=== PATIENT | female | born 1985 | race Caucasian/White ===

== ENCOUNTER 2017-02-01 21:54 | Inpatient (IN) | payer OTHER ==
[~2017-02-01] VITALS: Ht 175.3 cm; Wt 139.2 kg
[2017-02-01 22:15] VITALS: BP 126/83
[2017-02-01] MEDS ORDERED: PRENATAL TABLE1 EAC3 PO (22:53)
[2017-02-01] MEDS ORDERED: TUMS500 MG PO (22:54)
[2017-02-01 23:03] VITALS: BP 126/83
[2017-02-01 23:32] LABS: EOSINOPHIL (%) 0.1 % (0-5); HEMATOCRIT 33.8 % (36.0-46.0); IMMATURE GRANULOCYTE COUNT 0.1 K/uL; INSTRUMENT ABS NEUTROPHIL CT 12.4 K/uL; LYMPHOCYTE COUNT 1.2 K/uL (1.0-2.8); MCH 25.1 PG (29.0-34.0); MCHC 31.1 G/DL (30.0-36.0); MCV 80.7 FL (83-99); MEAN PLAT.VOLUME 11.6 uM^3 (9.5-12.4); MONOCYTE (%) 4.8 % (3-12); MONOCYTE COUNT 0.7 K/uL (0-0.8); NEUTROPHIL (%) 85.9 % (45-76); NEUTROPHIL COUNT 12.4 K/uL (1.8-6.4); PLATELET COUNT 188 K/uL (156-360); RBC DIS.WIDTH-CV 15.6 % (11.8-14.6); RBC DIS.WIDTH-SD 44.9 % (39-53); RED BLOOD COUNT 4.19 M/uL (3.80-5.20); WHITE BLOOD COUNT 14.5 K/uL (4.1-10.2)
[2017-02-02] VITALS (24 sets, daily range): BP systolic 104–137; BP diastolic 56–89
[2017-02-02] MEDS ORDERED: IBUPROFEN800 MG PO (14:00)
[2017-02-03 07:11] LABS: EOSINOPHIL (%) 0.2 % (0-5); HEMATOCRIT 27.1 % (36.0-46.0); IMMATURE GRANULOCYTE (%) 0.9 % (0.0-0.7); IMMATURE GRANULOCYTE COUNT 0.2 K/uL; INSTRUMENT ABS NEUTROPHIL CT 14.5 K/uL; LYMPHOCYTE COUNT 1.7 K/uL (1.0-2.8); MCH 25.5 PG (29.0-34.0); MCHC 31.4 G/DL (30.0-36.0); MCV 81.4 FL (83-99); MEAN PLAT.VOLUME 11.3 uM^3 (9.5-12.4); NEUTROPHIL COUNT 14.5 K/uL (1.8-6.4); PLATELET COUNT 166 K/uL (156-360); RBC DIS.WIDTH-CV 15.7 % (11.8-14.6); RBC DIS.WIDTH-SD 45.9 % (39-53); WHITE BLOOD COUNT 17.5 K/uL (4.1-10.2)
[2017-02-03 07:12] LABS: RED BLOOD COUNT 3.33 M/uL (3.80-5.20)
[2017-02-03 07:42] VITALS: BP 116/65
[2017-02-03] MEDS ORDERED: IRON325 MG PO (09:12)
[2017-02-03 15:19] VITALS: BP 126/77
[2017-02-03 22:51] VITALS: BP 134/60
[2017-02-04 07:53] VITALS: BP 134/63
== END 2017-02-04 12:30 | disposition home or self-care (01) | DRG 775 ==
LOC: LDRP-OP 21:54 → 2WEST 21:56
PROVIDERS: Midwife
PROC: 0KQM0ZZ Repair Perineum Muscle, Open Approach (ICD-10-PCS; principal; 2017-02-02)
PROC: 10E0XZZ Delivery of Products of Conception, External Approach (ICD-10-PCS; principal; 2017-02-02)
PROC: 10907ZC Drainage of Amniotic Fluid, Therapeutic from Products of Conception, Via Natural or Artificial Opening (ICD-10-PCS; principal; 2017-02-02)
PROC: 00HU33Z Insertion of Infusion Device into Spinal Canal, Percutaneous Approach (ICD-10-PCS; principal; 2017-02-02)
PROC: 3E0R3CZ (ICD-10-PCS; principal; 2017-02-02)
DX: O70.1 Second degree perineal laceration during delivery (principal); O99.214 Obesity complicating childbirth; E66.9 Obesity, unspecified; Z68.41 Body mass index [BMI] 40.0-44.9, adult; Z3A.40 40 weeks gestation of pregnancy; Z37.0 Single live birth; O77.0 Labor and delivery complicated by meconium in amniotic fluid
CPT/HCPCS: 85025; C1755; G0378; J0595; J3010; J7120